=== PATIENT | female | born 1975 | race Caucasian/White ===

== ENCOUNTER 2017-11-18 17:37 | Observation (INO) ==
[2017-11-18 18:25] LABS: Baso # (Auto) 0.1 th/mm3 (0.0-0.2); Baso % (Auto) 0.6 % (0.0-2.0); Eos # (Auto) 0.3 th/mm3 (0.0-0.4); Eos % (Auto) 3.7 % (0.0-4.0); Hematocrit 39.5 % (35.0-46.0); Hemoglobin 13.5 gm/dL (11.6-15.3); Lymph # (Auto) 2.1 th/mm3 (1.0-4.8); Lymph % (Auto) 23.2 % (9.0-44.0); Mean Corpuscular HGB Conc 34.1 % (32.0-36.0); Mean Corpuscular Hemoglobin 29.3 pg (27.0-34.0); Mean Corpuscular Volume 86.1 fL (80.0-100.0); Mean Platelet Volume 8.5 fL (7.0-11.0); Mono # (Auto) 0.6 th/mm3 (0.0-0.9); Mono % (Auto) 7.2 % (0.0-8.0); Neut # (Auto) 5.8 th/mm3 (1.8-7.7); Neut % (Auto) 65.3 % (16.0-70.0); Platelet Count 334 th/mm3 (150-450); Red Blood Count 4.59 mil/mm3 (4.00-5.30); Red Cell Distribution Width 13.1 % (11.6-17.2); White Blood Count 8.9 th/mm3 (4.0-11.0)
--- NOTE | 2017-11-18 18:26 | XR ---
EXAM DATE: 11/18/2017 6:14 PM EDT AGE/SEX: 41 years / Female INDICATIONS: Chest tightness. CLINICAL DATA: This is the patient's initial encounter. Patient reports that signs and symptoms have been present for 1 day and indicates a pain score of 0/10. MEDICAL/SURGICAL HISTORY: Hypertension. None. COMPARISON: [facility] [place], CHEST SINGLE AP, 02/08/2015. . FINDINGS: A single AP view of the chest demonstrates the lungs to be symmetrically aerated without evidence of mass, infiltrate or effusion. The cardiomediastinal contours are unremarkable. Osseous structures a re intact. CONCLUSION: Negative examination. Electronically signed by: Eddy Dacosta MD 11/18/2017 6:24 PM EDT
[2017-11-18 18:39] LABS: Activated Partial Thrombo Time 26.1 sec (24.3-30.1); INR 1.1 Ratio; Prothrombin Time 10.7 sec (9.8-11.6)
[2017-11-18 18:49] LABS: Anion Gap 9 meq/L (5-15); Blood Urea Nitrogen 8 mg/dL (7-18); Calcium 8.7 mg/dL (8.5-10.1); Carbon Dioxide 25.1 meq/L (21.0-32.0); Chloride 106 meq/L (98-107); Glomerular Filtration Rate 70 mL/min (>89); Glucose,Random 136 mg/dL (74-106); Potassium 3.4 meq/L (3.5-5.1); Sodium 140 meq/L (136-145)
--- NOTE | 2017-11-18 21:31 | ED ---
HPI General Chief Complaint: Chest Pain Stated Complaint: chest pain Time Seen by Provider: 11/18/17 20:30 Source: patient Mode of arrival: ambulatory Limitations: no limitations History of Present Illness HPI narrative: Patient is a 41-year-old female presenting to emerge department for evaluation of palpitations, chest pain, lightheadedness. She states that this happens frequently, it has been occurring for several years. She reports that she was here in 2014 but had to leave AMA prior to being fully evaluated because her son was at home by himself. Patient states today when this episode occurred she also experienced epistaxis. This resolved with pressure. The nosebleed occurred on Wednesday as well. Patient attributed this to her blood pressure, she checked her blood pressure today and it was 160 systolic. Patient states that she does not drink caffeine, she is on no [id number] supplements. Patient denies any anxiety. She denies any illicit drug use. Patient is followed by a primary doctor for her hypertension. She is currently on amlodipine, clonidine, carvedilol, Lasix, lisinopril. Patient reports compliance with these medications. These symptoms of lightheadedness and chest pain started prior to his blood pressure medications being initiated approximately 6 months ago. Her symptoms are not related to any activity. MD complaint: chest pain Complete Quality Measures for STEMI Alert Patients STEMI Alert: No Onset (ago): unknown Duration: intermittent Onset: during rest, during exertion and after eating Pain location: substernal Severity: mild Severity scale (1-10): 3 Quality: heaviness and other (Fluttering) Pain radiation: none Relieving factors: nothing Exacerbating factors: nothing Associated symptoms: diaphoresis, dyspnea and palpitations Treatments prior to arrival chest pain: none Related Data Home Medications Medication Instructions Recorded Confirmed amlodipine 10 mg PO DAILY 11/18/17 11/18/17 carvedilol 25 mg PO BID 11/18/17 11/18/17 furosemide 40 mg PO DAILY 11/18/17 11/18/17 hydralazine 25 mg PO BID 11/18/17 11/18/17 lisinopril 20 mg PO BID 11/18/17 11/18/17 Allergies Allergy/AdvReac Type Severity Reaction Status Date / Time vancomycin Allergy Dehydration Verified 11/18/17 17:52 Review of Systems Except as stated in HPI: all other systems reviewed are negative FOR[facility]LY [facility] Medical History Medical History Delivery of by section (Acute) Hypertension (Acute) Surgical History Surgical History History of cholecystectomy (Acute) Social History Social History Substance History: No History of Abuse Second Hand Smoke Exposure: No Smoking Status: Former smoker How Often Do You Have a Drink Containing Alcohol: Never Recent Travel in [facility] within the Last 8 Weeks: No Recent Out of Country Travel within the Last 8 Weeks: No Immunization History Tetanus Immunization: Unsure Hx Influenza Vaccine This Season: No Exam Narrative Exam Narrative: GENERAL: Well-developed, well-nourished, alert female. Presenting in no acute distress. SKIN: Focused skin assessment warm/dry. HEAD: Atraumatic. Normocephalic. EYES: Pupils equal and round. No scleral icterus. No injection or drainage. ENT: No nasal bleeding or discharge. Mucous membranes pink and moist. NECK: Trachea midline. No JVD. CARDIOVASCULAR: Regular rate and rhythm. No murmur appreciated. RESPIRATORY: No accessory muscle use. Clear to auscultation. Breath sounds equal bilaterally. GASTROINTESTINAL: Abdomen soft, non-tender, nondistended. Hepatic and splenic margins not palpable. MUSCULOSKELETAL: No obvious deformities. No clubbing. No cyanosis. No edema. NEUROLOGICAL: Awake and alert. No obvious cranial nerve deficits. Motor grossly within normal limits. Normal speech. PSYCHIATRIC: Appropriate mood and affect; insight and judgment normal. Course Initial Documented Vital Signs Temperature 97.8 F 11/18/17 17:43 Pulse Rate 89 11/18/17 17:43 Respiratory Rate 20 11/18/17 17:43 Blood Pressure 154/92 H 11/18/17 17:43 Pulse Oximetry 98 11/18/17 17:43 Last Documented Vital Signs Temperature 98.1 F 11/18/17 20:31 Pulse Rate 67 11/18/17 20:31 Respiratory Rate 14 11/18/17 20:31 Blood Pressure 143/91 H 11/18/17 20:31 Pulse Oximetry 97 11/18/17 20:31 Medical Decision Making MDM Narrative Medical decision making narrative: Patient is a 41-year-old female with a history of hypertension presenting for evaluation of chest pain, palpitations. Patient's vital signs are stable. Labs were reviewed, there were no acute findings. Chest x-ray showed no acute abnormality. EKG shows normal sinus rhythm, no ST elevation. Patient was in the emergency department 2014, at that time it was recommended the patient be admitted to the chest pain center. Patient was admitted at that time but then left AGAINST MEDICAL ADVICE due to her son being home alone. Patient has not had any stress test cardiac cath in the past. Patient will be admitted to the chest pain center at this time for further evaluation and management. Patient is currently resting comfortably and is pain-free. Differential Diagnosis Differential Diagnosis: ACS versus [place] versus metabolic abnormality versus anxiety versus arrhythmia versus other Medical Records Medical records reviewed: Yes I reviewed the patient's medical records. Lab Data Lab results reviewed: Yes I reviewed the patient's lab results. Result diagrams: 11/18/17 18:03 11/18/17 18:03 Lab Results 11/18/17 11/18/17 11/18/17 Range/Units 18:03 18:03 18:03 WBC 8.9 (4.0-11.0) th/mm3 RBC 4.59 (4.00-5.30) mil/mm3 Hgb 13.5 (11.6-15.3) gm/dL Hct 39.5 (35.0-46.0) % MCV 86.1 (80.0-100.0) fL MCH 29.3 (27.0-34.0) pg MCHC 34.1 (32.0-36.0) % RDW 13.1 (11.6-17.2) % Plt Count 334 (150-450) th/mm3 MPV 8.5 (7.0-11.0) fL Neut % (Auto) 65.3 (16.0-70.0) % Lymph % (Auto) 23.2 (9.0-44.0) % [place] % (Auto) 7.2 (0.0-8.0) % Eos % (Auto) 3.7 (0.0-4.0) % Baso % (Auto) 0.6 (0.0-2.0) % Neut # (Auto) 5.8 (1.8-7.7) th/mm3 Lymph # (Auto) 2.1 (1.0-4.8) th/mm3 [place] # (Auto) 0.6 (0.0-0.9) th/mm3 Eos # (Auto) 0.3 (0.0-0.4) th/mm3 Baso # (Auto) 0.1 (0.0-0.2) th/mm3 WBC Differential . Differential Comment Auto diff final PT 10.7 (9.8-11.6) sec INR 1.1 Ratio APTT 26.1 (24.3-30.1) sec Sodium 140 (136-145) meq/L Potassium 3.4 L (3.5-5.1) meq/L Chloride 106 (98-107) meq/L Carbon Dioxide 25.1 (21.0-32.0) meq/L Anion Gap 9 (5-15) meq/L BUN 8 (7-18) mg/dL Creatinine 0.89 (0.50-1.00) mg/dL Estimated GFR 70 L (>89) mL/min Random Glucose 136 H (74-106) mg/dL Calcium 8.7 (8.5-10.1) mg/dL Troponin I Less than 0.02 L (0.02-0.05) ng/mL Imaging Data Radiologist's impression: Chest X-Ray 11/18/17 17:52 CONCLUSION: Negative examination. Discharge Plan Discharge Disposition Patient Disposition: 30 Still Patient Discharge Condition Condition: Stable Discharge Details Diagnosis: Atypical chest pain Physicians Team ED Provider: Migdalia Coleman ED Midlevel Provider: Niecy Esqueda Primary Care Provider: Primary Care Ayla Warner Rxs /Orders / Referrals /Forms Prescriptions: No Action furosemide 40 mg Tablet 40 mg PO DAILY RF: 0 carvedilol 25 mg Tablet 25 mg PO BID RF: 0 lisinopril 20 mg Tablet 20 mg PO BID RF: 0 hydralazine 25 mg Tablet 25 mg PO BID RF: 0 amlodipine 10 mg Tablet 10 mg PO DAILY RF: 0 Discharge Instructions Patient Printed Instructions: Chest Pain (ED) Discharge Interventions Interventions: Vital Signs Last Done: 11/18/17 20:31 Status ED Status: With Doctor
[2017-11-18] MEDS ORDERED: Temazepam 15 MG Capsule PO PRN (21:46)
[2017-11-18] MEDS ORDERED: Acetaminophen 500 MG Tablet PO PRN (21:46)
[2017-11-19 00:12] LABS: Creatine Kinase 55 U/L (26-192)
[2017-11-19 01:29] LABS: Creatine Kinase 61 U/L (26-192)
[2017-11-19 06:35] VITALS: PULSE 64
[2017-11-19 08:59] VITALS: RESP 18
[2017-11-19] MEDS ORDERED: Aspirin 325 MG Tablet PO SCH (09:00)
--- NOTE | 2017-11-19 10:56 | P.HPCA ---
History of Present Illness Primary Care Physician: [facility] Chief Complaint: Elevated blood pressure History of Present Illness: 41 year old female with history of hypertension presents to ER for further evaluation of elevated blood pressure. Wednesday morning while getting ready for work became dizzy with nosebleed. while at work felt nauseous, dizzy, experiences slight headache, developed a nosebleed, chest palpitations, chest burning, was diaphoretic, and lost her balance. 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 Blood pressure was 160/112. Her work encouraged her to go to ER for further evaluation. Diagnosed with hypertension 3 years ago and currently taking 5 different antihypertensive medications. Versus compliance. Denies ever having further evaluation regarding reason for hypertension. Earlier this year was in [facility] for periorbital cellulitis. She was taking IV vancomycin and reports creatinine level was 9. Renal specialist in [facility] told her acute kidney failure was due to hypertension, not the vancomycin. 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 - Diagnosis (1) Atypical chest pain (2) Hypertension Review of Systems All other systems reviewed negative except as stated in [facility]PI [facility] - History History Provided By: Patient - Medical History Medical History: Medical History (Last Reviewed 11/18/17 @ 21:37 by LYNDSEY Tinajero) Delivery of by section Hypertension - Surgical History Surgical History: Surgical History (Last Reviewed 11/18/17 @ 21:37 by LYNDSEY Tinajero) History of cholecystectomy - Tobacco History Second Hand Smoke Exposure: No Tobacco Use In Past 30 Days: No Smoking Status: Never smoker - Alcohol History How Often Do You Have a Drink Containing Alcohol: Monthly or less - Substance Use History Substance History: No History of Abuse - Travel History History of Recent Travel: No Recent Travel in the [place] Within the Last 8 Weeks: No Recent Travel Out of the Country Within the Last 8 Weeks: No - Immunization History Tetanus Immunization: Unsure Hx Influenza Vaccine This Season: No Medications and Allergies Active Medications: Active Medications Acetaminophen (Tylenol) 500 mg PO Q4H PRN PRN Reason: HEADACHE Aspirin (Aspirin) 325 mg PO DAILY ON LICENSE OF [facility] Last Admin: 11/19/17 08:33 Dose: 325 mg Nitroglycerin (Nitrostat Sl) 0.4 mg SL Q5M PRN PRN Reason: CHEST PAIN Ondansetron HCl (Zofran Inj) 4 mg IV.PUSH Q6H PRN PRN Reason: NAUSEA Pantoprazole Sodium (Protonix) 40 mg PO DAILY ON LICENSE OF [facility] Last Admin: 11/19/17 08:33 Dose: 40 mg Sodium Chloride (Ns Flush) 2 ml IV.FLUSH PRN PRN PRN Reason: FLUSH AFTER USING IV ACCESS Sodium Chloride (Ns Flush) 2 ml IV.FLUSH BID ON LICENSE OF [facility] Last Admin: 11/19/17 08:34 Dose: 2 ml Temazepam (Restoril) 15 mg PO HS PRN PRN Reason: INSOMNIA Allergies Allergy/AdvReac Type Severity Reaction Status Date / Time vancomycin Allergy Dehydration Verified 11/18/17 17:52 Home Medications Medication Instructions Recorded Confirmed Type amlodipine 10 mg PO DAILY 11/18/17 11/18/17 History carvedilol 25 mg PO BID 11/18/17 11/18/17 History furosemide 40 mg PO DAILY 11/18/17 11/18/17 History hydralazine 25 mg PO BID 11/18/17 11/18/17 History lisinopril 20 mg PO BID 11/18/17 11/18/17 History Exam Vital signs: Vital Signs 11/18/17 17:43 11/18/17 20:31 11/18/17 22:00 Temperature 97.8 F 98.1 F Pulse Rate 89 67 71 Respiratory Rate 20 14 14 Blood Pressure 154/92 H 143/91 H 143/91 H Pulse Oximetry 98 97 98 11/18/17 23:35 11/19/17 00:35 11/19/17 03:51 Temperature 97.9 F 97.8 F Pulse Rate 73 65 66 Respiratory Rate 17 16 Blood Pressure 137/82 101/63 Pulse Oximetry 97 97 11/19/17 06:34 11/19/17 08:58 11/19/17 09:42 Temperature 98.6 F Pulse Rate 64 64 Respiratory Rate 18 Blood Pressure 100/60 Pulse Oximetry Intake & Output 11/18/17 11/19/17 11/19/17 18:59 06:59 18:59 Weight 81.647 kg Other: Date of Last Bowel Movement 11/18/17 Narrative: GENERAL: Alert WN, WD, NAD, pleasant, female HEAD: NC, AT EYES: Sclera clear, conjunctiva without injection, pupils equal and round NECK: Supple, no masses, trachea midline CV: RRR, without murmur, rub, gallop, no JVD. No carotid bruits. 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 EXT: Pulses +2x4, no dependent edema MS: Normal tone -4 extremities, nontender, no obvious deformities, full range of motion NEURO: CN II through CN XII grossly intact, motor strength 5/5 PSYCH: A+O x3, pleasant affect, appropriate speech, mood, insight and judgment SKIN: Normal turgor, normal texture, no lesions, no rashes, even hair distribution Results 11/18/17 18:03 11/18/17 18:03 Cardiac Enzymes 11/18/17 11/18/17 11/19/17 Range/Units 18:03 23:00 00:25 Troponin I Less than 0.02 L Less than 0.02 L Less than 0.02 L (0.02-0.05) ng/mL Coagulation 11/18/17 Range/Units 18:03 PT 10.7 (9.8-11.6) sec APTT 26.1 (24.3-30.1) sec CBC 11/18/17 Range/Units 18:03 WBC 8.9 (4.0-11.0) th/mm3 RBC 4.59 (4.00-5.30) mil/mm3 Hgb 13.5 (11.6-15.3) gm/dL Hct 39.5 (35.0-46.0) % Plt Count 334 (150-450) th/mm3 Neut # (Auto) 5.8 (1.8-7.7) th/mm3 Lymph # (Auto) 2.1 (1.0-4.8) th/mm3 [place] # (Auto) 0.6 (0.0-0.9) th/mm3 Eos # (Auto) 0.3 (0.0-0.4) th/mm3 Baso # (Auto) 0.1 (0.0-0.2) th/mm3 Comprehensive Metabolic Panel 11/18/17 Range/Units 18:03 Sodium 140 (136-145) meq/L Potassium 3.4 L (3.5-5.1) meq/L Chloride 106 (98-107) meq/L Carbon Dioxide 25.1 (21.0-32.0) meq/L BUN 8 (7-18) mg/dL Creatinine 0.89 (0.50-1.00) mg/dL Calcium 8.7 (8.5-10.1) mg/dL Intake and Output 11/18/17 11/19/17 11/19/17 22:59 06:59 14:59 Other: Date of Last Bowel Movement 11/18/17 Weight 81.647 kg EKG interpretations - EKG EKG results cardiology: sinus rhythm, normal axis, normal QRS, normal ST/T Caprini VTE Risk Assessment Caprini VTE Risk Assessment: No/Low Risk (score <= 1) Caprini Risk Assessment Model: Point Value = 1 Point Value = 2 Point Value = 3 Point Value = 5 Age 41-60 Minor surgery BMI > 25 kg/m2 Swollen legs Varicose veins or History of unexplained or recurrent spontaneous Oral contraceptives or hormone replacement Sepsis (< 1 month) Serious lung disease, including pneumonia (< 1 month) Abnormal pulmonary function Acute myocardial infarction Congestive heart failure (< 1 month) History of inflammatory bowel disease Medical patient at bed rest Age 61-74 Arthroscopic surgery Major open surgery (> 45 min) Laparoscopic surgery (> 45 min) Malignancy Confined to bed (> 72 hours) Immobilizing plaster cast Central venous access Age >= 75 History of VTE Family history of VTE Factor V Leiden Prothrombin [id number] Lupus anticoagulant Anticardiolipin antibodies Elevated serum homocysteine Heparin-induced thrombocytopenia Other congenital or acquired thrombophilia Stroke (< 1 month) Elective arthroplasty Hip, pelvis, or leg fracture Acute spinal cord injury (< 1 month) Prophylaxis Regimen: Total Risk Factor Score Risk Level Prophylaxis Regimen 0-1 Low Early ambulation 2 Moderate Order ONE of the following: *Sequential Compression Device (SCD) *Heparin 5000 units SQ BID 3-4 Higher Order ONE of the following medications: *Heparin 5000 units SQ TID *Enoxaparin/Lovenox 40 mg SQ daily (WT < 150 kg, CrCl > 30 mL/min) *Enoxaparin/Lovenox 30 mg SQ daily (WT < 150 kg, CrCl > 10-29 mL/min) *Enoxaparin/Lovenox 30 mg SQ BID (WT < 150 kg, CrCl > 30 mL/min) AND/OR *Sequential Compression Device (SCD) 5 or more Highest Order ONE of the following medications: *Heparin 5000 units SQ TID (Preferred with Epidurals) *Enoxaparin/Lovenox 40 mg SQ daily (WT < 150 kg, CrCl > 30 mL/min) *Enoxaparin/Lovenox 30 mg SQ daily (WT < 150 kg, CrCl > 10-29 mL/min) *Enoxaparin/Lovenox 30 mg SQ BID (WT < 150 kg, CrCl > 30 mL/min) AND *Sequential Compression Device (SCD) Assessment and Plan - Assessment (1) Atypical chest pain Code(s): R07.89 - Other chest pain Status: Acute Plan: Admitted to chest pain center. ACS ruled out 3 sets of EKGs and cardiac enzymes. Discomfort atypical, unlikely related to coronary artery disease. Will be seen evaluated by Dr. Sonu Lerner. Likely will proceed with exercise cardiac testing later this morning. If unremarkable, plans to be discharged home with follow-up with PCP. (2) Hypertension Code(s): I10 - Essential (primary) hypertension Status: Chronic Plan: Continue amlodipine, carvedilol, lisinopril, and furosemide. Discussed in length importance of establishing with a specialist for uncontrolled hypertension despite aggressive medication adherence and investigate cause. Lifestyle and dietary modifications encouraged, however due to difficulty managing blood pressure. H&P: Quality - VTE Deep Vein Thrombosis/Pulmonary Embolism Present on Admission: No (2) Hypertension Qualifiers: Hypertension type: unspecified Qualified Code(s): I10 - Essential (primary) hypertension
--- NOTE | 2017-11-19 13:12 | TR ---
Date Performed: 11/19/2017 Time Performed: 12:22:11 DOCTOR: Sonu Lerner DRUG LIST: CLINICAL HISTORY: CHEST PAIN REASON FOR TEST: REASON FOR ENDING: OBSERVATION: CONCLUSION: Nacho protocol completed. Stopped sec to leg fatigue and exceeding target heart rate . Maximum EZ=020 Max HR Achieved=91.0% Maximum PL=228/90 Total Exercise Time=9:01. No reprod chest di scom[place]. No ectopy. No st t segment changes. Good exercise tolerance. Normal bp response. Recovery q uick and unremarkable. COMMENTS: Conclusion: Normal treadmill exercise. No evidence of ischemia.
--- NOTE | 2017-11-19 15:02 | ECG ---
Date Performed: 11/19/2017 Time Performed: 00:24:52 PTAGE: 41 years EKG: Sinus rhythm NORMAL ECG PREVIOUS TRACING : 11/18/2017 23.09 Since previous tracing, no significant change noted DOCTOR: Sonu Lerner Interpretating Date/Time 11/19/2017 14:59:55
--- NOTE | 2017-11-19 15:02 | ECG ---
Date Performed: 11/18/2017 Time Performed: 23:09:31 PTAGE: 41 years EKG: Normal ECG PREVIOUS TRACING : 11/18/2017 18.00 Since previous tracing, no significant change noted DOCTOR: Sonu Lerner Interpretating Date/Time 11/19/2017 15:01:59
--- NOTE | 2017-11-19 15:11 | ECG ---
Date Performed: 11/18/2017 Time Performed: 18:00:41 PTAGE: 41 years EKG: Sinus rhythm NORMAL ECG PREVIOUS TRACING : 02/08/2015 14.07 Since previous tracing, no significant change noted DOCTOR: Sonu Lerner Interpretating Date/Time 11/19/2017 15:10:31
[2017-11-23 18:01] VITALS: BP 122/86; TEMP 98.2; O2SAT 98
== END 2017-11-19 15:41 | disposition home or self-care (01) ==
LOC: NEDA 17:37 → NEPC 17:37 → NEPGCP 17:37
DX: Z88.1 Allergy status to other antibiotic agents; L03.213 Periorbital cellulitis; I10 Essential (primary) hypertension; R04.0 Epistaxis; E86.0 Dehydration; N17.9 Acute kidney failure, unspecified; Z87.891 Personal history of nicotine dependence; R07.89 Other chest pain; Z90.49 Acquired absence of other specified parts of digestive tract